=== PATIENT | male | born 1980 | race Caucasian/White ===

== ENCOUNTER 2023-11-10 05:28 | Emergency (ER) | payer OTHER ==
[2023-11-10] MEDS ORDERED: IPRATROPIUM-ALBUTEROL 3 ML NEB ONE (06:19)
[2023-11-10] MEDS ORDERED: ACETAMINOPHEN TAB 325 MG TAB ONE (06:20)
[2023-11-10] MEDS ORDERED: IBUPROFEN 600 MG TAB PO ONE (08:37)
--- NOTE | 2023-12-14 14:11 | XR ---
Patient: Eric Rice Ordering Physician: Unknown, Unknown ID: [id number] Phone, Pager: Phone: N/A Pager: N/A : 1980 Age/Gender: 43Y, M Primary Location: N/A Procedure: XR chest 2V Study D ate: 11/10/2023 7:25:00 AM EXAMINATION TYPE: XR chest 2V DATE OF EXAM: 11/22/2023 12:15 PM CLINICAL INDICATION: Cough COMPARISON: None TECHNIQUE: XR chest 2V Frontal view of the chest. FINDINGS: Lungs/Pleura: There is no evidence of pleural effusion, focal consolidation, or pneumothorax. Pulmonary vascularity: Unremarkable. Heart/mediastinum: Cardiomediastinal silhouette is unremarkable. Musculoskeletal: No acute osseous pathology. Other findings: None IMPRESSION: No acute cardiopulmonary disease/process.
== END 2023-11-10 08:00 | disposition home or self-care (01) ==
LOC: EC 05:28
CPT/HCPCS: 71046; 94640; 99283